=== PATIENT | female | born 1955 | race Caucasian/White ===

== ENCOUNTER 2022-08-30 08:03 | Outpatient (CLI) | payer MEDICARE | END 2022-08-30 08:04 | disposition home or self-care (01) | LOC: CSHMAMMO 08:03 | PROVIDERS: ATTEND Nurse Practitioner Family | DX: N63.32 Unspecified lump in axillary tail of the left breast (principal); Z85.850 Personal history of malignant neoplasm of thyroid; Z80.3 Family history of malignant neoplasm of breast | CPT/HCPCS: 76642; 77066; G0279 ==

== ENCOUNTER 2022-09-18 10:44 | Outpatient (CLI) | payer MEDICARE | END 2022-09-18 10:45 | disposition home or self-care (01) | LOC: CSHMAMMO 10:44 | PROVIDERS: ATTEND Psychiatry & Neurology Psychiatry | DX: Z13.820 Encounter for screening for osteoporosis (principal); M85.89 Other specified disorders of bone density and structure, multiple sites; Z78.0 Asymptomatic menopausal state | CPT/HCPCS: 77080 ==